=== PATIENT | female | born 1985 | race African-American/Black ===

== ENCOUNTER 2018-10-15 07:40 | Emergency (ER) | payer MEDICAID ==
[~2018-10-15] VITALS: Ht 177.8 cm; Wt 70.3 kg
[2018-10-15 07:48] VITALS: BP 105/72
[2018-10-15] MEDS ORDERED: oxyCODONE/APAP (5/325 MG) 1 UDTAB TABLET ONE (07:59)
[2018-10-15] MEDS ORDERED: oxyCODONE/APAP (5/325 MG) 1 UDTAB TABLET PO ONE (08:00)
== END 2018-10-15 08:08 | disposition home or self-care (01) ==
LOC: ER 07:45
DX: J03.90 Acute tonsillitis, unspecified (principal); Z60.2 Problems related to living alone
CPT/HCPCS: 99282; A4606; Z7610